=== PATIENT | male | born 1960 | race Caucasian/White ===

== ENCOUNTER → 2018-09-04 | Outpatient (CLI) | payer BC ==
[2018-09-04 13:11] LABS: HCT 45.4 % (39.0-53.0); HGB 14.7 gm/dL (13.0-17.5); MCH 32.9 pg (25.0-35.0); MCHC 32.3 g/dL (31.0-37.0); MCV 102.1 fL (80.0-100.0); Mean Platelet Volume 6.6; Platelet Count 225 k/uL (150-450); RBC 4.45 m/uL (4.30-5.90); RDW 12.3 % (11.5-15.5); WBC 6.4 k/uL (3.8-10.6)
== END | disposition home or self-care (01) ==
LOC: LABPAT 11:58
PROVIDERS: ATTEND Internal Medicine Cardiovascular Disease
DX: Z01.812 Encounter for preprocedural laboratory examination (principal)
CPT/HCPCS: 36415; 85027

== ENCOUNTER 2018-09-10 06:56 | Day surgery (SDC) | payer BC ==
[2018-09-08 09:44] VITALS: BMI 27.3
[~2018-09-10 06:56] MED LIST: SODIUM CHLORIDE 0.9% 1,000 ML IV SCH
[2018-09-10 07:39] LABS: INR 3.6 (<1.2); Prothrombin Time 32.1 sec (9.0-12.0)
[2018-09-10] MEDS ORDERED: PROPOFOL 10 MG/ML 20 ML VIAL IV ONE (08:00)
[2018-09-10] MEDS ORDERED: IV FLUID CONTINUATION 1,000 ML IV ONE (08:02)
[2018-09-10] MEDS ORDERED: LORazepam 0.5 MG TAB PO PRN (08:28)
[2018-09-10] MEDS ORDERED: SODIUM CHLORIDE 0.9% 1,000 ML IV SCH (08:30)
--- NOTE | 2018-09-10 08:33 | P.PCN ---
Date of Procedure: 09/10/18 Preoperative Diagnosis: Persistent atrial fibrillation Postoperative Diagnosis: Conversion to sinus rhythm Procedure(s) Performed: Cardioversion Description of Procedure: This 58-year-old gentleman with history of mitral repair for ruptured chordae tendineae and paroxysmal atrial fibrillation, was found to have persistent atrial fibrillation. Patient was complaining of some fatigue and palpitations. He is advised to have a cardioversion. Procedure: Patient was brought to the lab in a fasting state. He was given IV sedation by department of anesthesia. Since March shock of 300 J was applied with anterior posterior paddles. Patient converted to sinus rhythm. No immediate complications noted. Impression: Successful cardioversion. No immediate complication. Patient is being admitted to observation unit and will be treated with flecainide 100 mg by mouth twice a day. If patient is stable, patient will be discharged in 24 hours.
[2018-09-10] MEDS ORDERED: SODIUM CHLORIDE 0.9% 1,000 ML IV ONE (08:54)
[2018-09-10] MEDS ORDERED: NON-FORMULARY DRUG (Glucosam/Chon-Msm1/C/Mang/Bosw [Glucosamine-Chondroitin Tablet] 1 TAB) PO SCH (09:00)
[2018-09-10] MEDS ORDERED: NON-FORMULARY DRUG (Omega-3 Fatty Acids/Fish Oil [Fish Oil 1,000 Mg Softgel] 1 CAP) PO SCH (09:00)
[2018-09-10] MEDS ORDERED: LISINOPRIL-HCTZ 10-12.5 MG 1 EACH TAB PO STA (11:50)
[2018-09-10] MEDS ORDERED: FLECAINIDE 50 MG TAB PO STA (11:50)
[2018-09-10] MEDS ORDERED: MULTIVITAMINS, THERA 1 EACH TAB PO STA (11:51)
[2018-09-10] MEDS ORDERED: METOPROLOL TARTRATE 25 MG TAB PO STA (11:51)
[2018-09-10] MEDS: LACTATED RINGERS 1,000 ML IV SCH ×2 (18:15→19:34)
[2018-09-10] MEDS: FLECAINIDE 50 MG TAB PO SCH (19:46)
[2018-09-10] MEDS: METOPROLOL TARTRATE 25 MG TAB PO SCH (19:57)
[2018-09-11 04:03] VITALS: PULSE 61
[2018-09-11 07:36] VITALS: BP 151/88; RESP 18; TEMP 98.3
[2018-09-11 07:47] LABS: INR 1.6 (<1.2); Prothrombin Time 15.1 sec (9.0-12.0)
[2018-09-11] MEDS: METOPROLOL TARTRATE 25 MG TAB PO SCH (07:49)
[2018-09-11] MEDS: FLECAINIDE 50 MG TAB PO SCH (07:49)
--- NOTE | 2018-09-11 08:46 | P.DS ---
Providers Date of admission: 09/10/2018 Attending physician: Misa Garcia Primary care physician: Hemanth Freeman - Discharge Diagnosis(es) (1) Persistent atrial fibrillation Current Visit: Yes Status: Acute (2) Cardiomyopathy Current Visit: No Status: Acute (3) Congestive heart failure Current Visit: No Status: Acute (4) Hypertension Current Visit: No Status: Acute (5) Mitral regurgitation Current Visit: No Status: Acute Hospital Course: This is a 58-year-old gentleman with history of mitral valve repair for ruptured chordae tendineae and history of paroxysmal atrial fibrillation, who is admitted now with new onset persistent atrial fibrillation. A she had elective cardioversion and maintaining sinus rhythm. Patient has been stable overnight. He was started on flecainide 100 mg by mouth twice a day. Patient is tolerating the medication well. EKG this morning showed sinus rhythm with normal FL and QRS duration with normal QT interval. Patient is being discharged home to continue home medications plus flecainide 100 mg by mouth twice a day. Patient is adequately anticoagulated. Follow-up in the office in one week. Plan - Discharge Summary Discharge Rx Participant: Yes New Discharge Prescriptions: New Flecainide [Tambocor] 100 mg PO Q12HR #60 tablet No Action Multivitamins, Thera [Multivitamin (formulary)] 1 tab PO DAILY Potassium 99 mg PO DAILY Douglas-3 Fatty Acids/Fish Oil [Fish Oil 1,000 mg Softgel] 1 cap PO DAILY Glucosam/Trav-Msm1/C/Anthony/Bosw [Glucosamine-Chondroitin Tablet] 1 tab PO DAILY Calcium/Magnesium/Zinc [Viqxccr-Jubudljhv-Stqq Tablet] 1 tab PO DAILY Lisinopril-Hctz 10-12.5 mg [Zestoretic 10-12.5] 1 each PO DAILY #30 tab LORazepam [Ativan] 0.5 mg PO Q8H PRN #20 tab PRN Reason: Anxiety Warfarin [Coumadin] 5 mg PO DAILY #20 tab Metoprolol Tartrate [Lopressor] 75 mg PO DAILY Discharge Medication List Calcium/Magnesium/Zinc [Iknuinq-Okjzuebyv-Wnwv Tablet] 1 tab PO DAILY 11/26/15 [ History] Glucosam/Trav-Msm1/C/Anthony/Bosw [Glucosamine-Chondroitin Tablet] 1 tab PO DAILY 11/26/15 [History] Multivitamins, Thera [Multivitamin (formulary)] 1 tab PO DAILY 11/26/15 [History ] Douglas-3 Fatty Acids/Fish Oil [Fish Oil 1,000 mg Softgel] 1 cap PO DAILY [History] Potassium 99 mg PO DAILY 11/26/15 [History] LORazepam [Ativan] 0.5 mg PO Q8H PRN #20 tab 11/30/15 [Rx] Lisinopril-Hctz 10-12.5 mg [Zestoretic 10-12.5] 1 each PO DAILY #30 tab [Rx] Warfarin [Coumadin] 5 mg PO DAILY #20 tab 11/30/15 [Rx] Metoprolol Tartrate [Lopressor] 75 mg PO DAILY 09/08/18 [History] Flecainide [Tambocor] 100 mg PO Q12HR #60 tablet 09/11/18 [Rx] Follow up Appointment(s)/Referral(s): Misa Garcia MD [STAFF PHYSICIAN] - 1 Week Discharge Disposition: HOME SELF-CARE
[2018-09-11] MEDS ORDERED: METOPROLOL TARTRATE 25 MG TAB PO SCH (09:00)
[2018-09-11] MEDS ORDERED: POTASSIUM CHLORIDE ER 10 MEQ TAB.ER.PRT PO SCH (09:00)
[2018-09-11] MEDS ORDERED: NON-FORMULARY DRUG (Calcium/Magnesium/Zinc [Calcium-Magnesium-Zinc Tablet] 1 TAB) PO SCH (09:00)
[2018-09-11] MEDS ORDERED: LISINOPRIL-HCTZ 10-12.5 MG 1 EACH TAB PO SCH (09:00)
[2018-09-11] MEDS ORDERED: MULTIVITAMINS, THERA 1 EACH TAB PO SCH (12:00)
[2018-09-11] MEDS ORDERED: WARFARIN 5 MG TAB PO SCH (18:00)
== END 2018-09-11 11:24 | disposition home or self-care (01) ==
LOC: CATHCVL 06:56 → 1SOBS 08:24 → CATHCVL 09-11 11:24
PROVIDERS: ATTEND Internal Medicine Cardiovascular Disease
DX: I48.1 Persistent atrial fibrillation (principal); I11.0 Hypertensive heart disease with heart failure; I50.31 Acute diastolic (congestive) heart failure; I42.9 Cardiomyopathy, unspecified; I34.0 Nonrheumatic mitral (valve) insufficiency; G47.33 Obstructive sleep apnea (adult) (pediatric); Z79.01 Long term (current) use of anticoagulants; Z72.0 Tobacco use; Z79.899 Other long term (current) drug therapy; Z79.82 Long term (current) use of aspirin; Z98.890 Other specified postprocedural states
CPT/HCPCS: 92960; 85610 ×2; J2704

== ENCOUNTER 2019-02-17 10:58 | Day surgery (SDC) | payer BC ==
[2019-02-17] MEDS ORDERED: ALPRAZolam 0.5 MG TAB ONE (11:49)
[2019-02-17] MEDS ORDERED: ALPRAZolam 0.5 MG TAB PO ONE (11:52)
[2019-02-17] MEDS ORDERED: SODIUM CHLORIDE 0.9% 1,000 ML IV ONE ×2 (11:53→18:59)
[2019-02-17 11:54] LABS: INR 2.6 (<1.2); Prothrombin Time 25.1 sec (9.0-12.0)
[2019-02-17] MEDS ORDERED: SUCCINYLCHOLINE CHLORIDE 100 MG/5 ML SYR IV ONE (13:33)
[2019-02-17] MEDS ORDERED: ROCURONIUM BROMIDE 10 MG/ML 10 ML VIAL IV ONE (13:33)
[2019-02-17] MEDS ORDERED: PROPOFOL 10 MG/ML 20 ML VIAL IV ONE (13:33)
[2019-02-17] MEDS ORDERED: MORPHINE SULFATE 10 MG/ML SYRINGE ONE (13:33)
[2019-02-17] MEDS ORDERED: PHENYLEPHRINE-0.9% NACL SYG 1 MG/10 ML SYRINGE ONE (13:33)
[2019-02-17] MEDS ORDERED: PROTAMINE SULFATE 10 MG/ML 5 ML VIAL IV ONE (13:33)
[2019-02-17] MEDS ORDERED: HEPARIN SODIUM,PORCINE 5,000 UNIT/ML 1 ML VIAL ONE (13:33)
[2019-02-17] MEDS ORDERED: MIDAZOLAM 2 MG/2 ML VIAL ONE (13:33)
[2019-02-17] MEDS ORDERED: fentaNYL (PF) 50 MCG/ML 2 ML AMP ONE (13:33)
[2019-02-17] MEDS ORDERED: HEPARIN SOD,PORK IN 0.45% NACL 25,000 UNIT in 0.45% NACL 1 250ML.BAG IV ONE (14:00)
[2019-02-17] MEDS ORDERED: HEPARIN SODIUM (1,000 UNIT/ML) 1,000 UNIT in SODIUM CHLORIDE 0.9% 1,000 ML IRRIGATION ONE (14:00)
[2019-02-17] MEDS ORDERED: HEPARIN SODIUM 1,000 UN/ML (10ML VL) ONE ×2 (14:07→16:26)
[2019-02-17] MEDS ORDERED: LIDOCAINE 1% INJ 10MG/ML (20 ML MDV) ONE (14:08)
[2019-02-17] MEDS ORDERED: ceFAZolin IN SWFI 2 GM/20 ML SYRINGE IVP ONE (14:15)
[2019-02-17] MEDS ORDERED: LIDOCAINE 1% INJ 10MG/ML (20 ML MDV) SQ ONE (14:16)
[2019-02-17] MEDS ORDERED: LACTATED RINGERS 1,000 ML IV ONE (15:10)
[2019-02-17] MEDS ORDERED: WARFARIN 2.5 MG TAB PO SCH (18:00)
[2019-02-17] MEDS ORDERED: ACETAMINOPHEN IV (For NPO) 1,000 MG in EMPTY BAG 1 BAG IVPB ONE (18:01)
[2019-02-17] MEDS ORDERED: ACETAMINOPHEN TAB 325 MG TAB PO PRN (18:01)
[2019-02-17] MEDS: LACTATED RINGERS 1,000 ML IV SCH ×2 (18:12→22:16)
[2019-02-17] MEDS: SODIUM CHLORIDE 0.9% 1,000 ML IV SCH ×2 (18:12→22:05)
--- NOTE | 2019-02-17 18:32 | P.PCN ---
Preoperative Diagnosis: Diagnosis Atrial fibrillation, symptomatic, refractory to therapy, intolerant of flecainide Status post surgical maze procedure at the time of mitral valve surgery/cardiac valve repair Result Successful pulmonary vein isolation of all veins using cryo-ablation Complete entrance block in all 4 veins confirmed No evidence for phrenic nerve injury Linear ablation along left atrial roof targeting rapid atrial tachycardia with fractionation Linear ablation along the anterior LA wall outside the right atrial antrum, targeting fractionated electrograms Esophageal deflection YES Electrical cardioversion with a synchronized shock across the chest YES Procedure details Patient was brought to the EP lab in a fasting state. Written informed consent was obtained prior to the procedure. Procedure performed under general anesthesia After initial muscle relaxant use, muscle relaxants were not given thereafter in order to assess phrenic nerve during procedure. Patient prepped and draped as per protocol Full cryo-set up with standard preparation of the cryoablation tools done. Femoral Venous access obtained on the right and left groins Venous and arterial Sheaths placed. Diagnostic catheters for the high right atrium, phrenic nerve stimulation and pacing, His bundle, RV and coronary sinus placed Intracardiac echo catheter placed. Long sheath placed in the right atrium Left and right transseptal catheterization performed under intracardiac echo guidance. Intravenous heparin with aCT above 300 Later, catheter positioning and balloon positioning in the left atrium, under intracardiac echo guidance Diagnostic EP study with Coronary sinus pacing and recording Baseline measurements AH interval 69 ms, HV interval 39 ms AV node Wenckebach block 390 ms VA Wenckebach block for 90 ms Atrial pacing performed from the high right atrium and the coronary sinus RV pacing Transseptal catheterization performed RA pressure 23/9 LA pressure 33/11 Transseptal catheterization performed with standard sheath. The cryoablation sheath was then placed with an over the wire exchange without any acute complications. All 4 pulmonary veins were isolated in the following sequence: Left superior followed by left inferior followed by right superior followed by right inferior The cryo-ablation balloon was placed at the os of each vein 1.5 mL of IV dye was injected to confirm an occluded vein Goal during cryoablation was to achieve complete occlusion of the pulmonary vein, achieve -30 degrees C at 30 seconds and achieve -40 degrees C at 60 seconds and a time to effect of less than 60-90 seconds, . If not the balloon was repositioned to obtain this result After completion of Cryoblation with durations from 180-240 seconds, entrance block was confirmed with the Attain circular catheter in a roving fashion around the antrum of the pulmonary veins Phrenic nerve pacing was performed from the SVC, right innominate vein area and diaphragm voltage was monitored. Diaphragmatic contractions were also monitored manually for strength of contraction. Parameter goals for each cryo freeze Complete occlusion of the appropriate vein -30 degrees C by 30 seconds -40 degrees C by 60 seconds Minimum between minus 40-55 degrees C Thaw time greater than 10 seconds Balloon visualized by intracardiac echo The esophagus was intubated. Esophageal Temperature monitoring with a CIRCA catheter formed. Esophageal deflection for hypothermia of the esophagus below 30 degrees C Left superior pulmonary vein Complete isolation, entrance block Left inferior pulmonary vein Complete isolation, entrance block Right superior pulmonary vein, during phrenic nerve pacing Was already completely isolated. Patient has a prior maze procedure performed Right inferior pulmonary vein, during phrenic nerve pacing Complete isolation, entrance block At the end of the procedure the Achieve catheter was once again used to check for entrance block Phrenic nerve stimulation was performed to confirm diaphragmatic stimulation the end of the procedure Cine fluoroscopy was performed at the very end of the procedure to confirm movement of both diaphragms with inspiration and expiration Cryoablation of the pulmonary veins resulted in slight organization a slight prolongation of the rapid atrial tachycardia about 160 ms The cryo sheath and the balloon was removed. An irrigated tip RF ablation catheter was placed 3-D mapping of the right atrium was performed Intracardiac echocardiography was performed Veins are completely isolated There is a very rapid atrial tachycardia with a short cycle length with fractionation noted in the left atrial roof as well as along the anterior wall outside the right superior pulmonary vein antrum Targeting the fractionated electrograms, ablation outside the right pulmonary venous antrum was performed with slight further organization of the tachycardia Left atrial roof line was made with further organization of the cardia RF ablation was applied in the mitral isthmus with some more organization. However the atrial fibrillation/very rapid short cycle length atrial tachycardia continued The right atrium was mapped and was found to be in atrial fibrillation No right atrial ablation was performed At the end of the procedure the patient was extubated Heparin was reversed Venous sheaths were removed and hemostasis assured Procedures performed (PVI - CRYO Ablation) Invasive hemodynamic monitoring while general anesthesia, right femoral arterial line for monitoring and sampling Diagnostic EP study CS pacing and recording Left and right transseptal catheterization Catheter the mapping of the tachycardia (NOT 3D mapping) Intracardiac echocardiography Pulmonary vein isolation with transseptal and comprehensive EPS, [id number] Left atrial roof line, +[id number] Linear ablation along the anterior wall of the LA, +[id number] Electrical cardioversion with a synchronized shock across the chest [id number]
[2019-02-17] MEDS ORDERED: IOPAMIDOL-370 100ML BTL INJ ONE (18:34)
--- NOTE | 2019-02-17 18:34 | P.DS ---
Providers Attending physician: Venu Oh Primary care physician: Hemanth Freeman [facility] Course: Impression Symptomatic persistent atrial fibrillation, drug refractory, refractory to surgical Maze procedure performed when his mitral valve was repaired Intracardiac echo showed a left atrial appendage stump Complete recovery was noted in the left superior, left inferior in the right middle and right inferior pulmonary veins Pulmonary vein isolation was performed, using cryoablation line RF ablation was performed targeting fractionated electrograms along the anterior wall of the left atrium much outside the right superior pulmonary venous antra Linear ablation along the left atrial roof Only slight organization of the very rapid atrial tachycardia with a slight prolongation cycle length Right atrium was mapped and was in atrial fibrillation Impression underwent electrical cardioversion Plan Continue anticoagulation Continue metoprolol If he has recurrence of atrial fibrillation I would use dofetilide. I did discuss this with his and daughter and explained that this has to be done as an inpatient and he needs to be monitored for 5 days on telemetry while watching his QT interval Plan - Discharge Summary Discharge Rx Participant: No New Discharge Prescriptions: No Action Multivitamins, Thera [Multivitamin (formulary)] 1 tab PO DAILY Potassium 99 mg PO DAILY Calcium/Magnesium/Zinc [Zttkenc-Vtgiodlps-Rnlc Tablet] 1 tab PO DAILY Atorvastatin [Lipitor] 20 mg PO HS Krill/China-3/Dha/Epa/Lipids [Krill Oil 350 mg Softgel] 1 each PO DAILY Lisinopril-Hctz 10-12.5 mg [Zestoretic 10-12.5] 2 each PO DAILY LORazepam [Ativan] 1 mg PO HS PRN PRN Reason: sleep Metoprolol Succinate (ER) [Toprol Xl] 75 mg PO DAILY Turmeric Root Extract [Turmeric] 500 mg PO DAILY Warfarin [Coumadin] 3.75 mg PO MOFR Warfarin [Coumadin] 2.5 mg PO SUTUWETHSA Discharge Medication List Calcium/Magnesium/Zinc [Htntnnn-Hrewgfhyz-Exkv Tablet] 1 tab PO DAILY 11/26/15 [History] Multivitamins, Thera [Multivitamin (formulary)] 1 tab PO DAILY 11/26/15 [History] Potassium 99 mg PO DAILY 11/26/15 [History] Atorvastatin [Lipitor] 20 mg PO HS 02/16/19 [History] Krill/China-3/Dha/Epa/Lipids [Krill Oil 350 mg Softgel] 1 each PO DAILY 02/16/19 [History] LORazepam [Ativan] 1 mg PO HS PRN 02/16/19 [History] Lisinopril-Hctz 10-12.5 mg [Zestoretic 10-12.5] 2 each PO DAILY 02/16/19 [History] Metoprolol Succinate (ER) [Toprol Xl] 75 mg PO DAILY 02/16/19 [History] Turmeric Root Extract [Turmeric] 500 mg PO DAILY 02/16/19 [History] Warfarin [Coumadin] 2.5 mg PO SUTUWETHSA 02/16/19 [History] Warfarin [Coumadin] 3.75 mg PO MOFR 02/16/19 [History]
[2019-02-17 20:19] VITALS: BMI 28.3
[2019-02-17 21:00] VITALS: RESP 18
[2019-02-17] MEDS ORDERED: ATORVASTATIN 20 MG TAB PO SCH (21:00)
[2019-02-17] MEDS: HYDROcodone/APAP 5-325MG 1 EACH TAB PO PRN (22:04)
[2019-02-18] MEDS: HYDROcodone/APAP 5-325MG 1 EACH TAB PO PRN ×2 (01:32→08:47)
[2019-02-18 08:21] LABS: INR 2.6 (<1.2); Prothrombin Time 25.3 sec (9.0-12.0)
[2019-02-18] MEDS ORDERED: METOPROLOL SUCCINATE (ER) 50 MG TAB.ER.24H PO SCH (09:00)
[2019-02-18] MEDS ORDERED: LISINOPRIL-HCTZ 20-25 MG 1 EACH TAB PO SCH (09:00)
[2019-02-18 11:26] VITALS: BP 122/80; PULSE 65; TEMP 98.1
[2019-02-20] MEDS ORDERED: WARFARIN 2.5 MG TAB PO SCH (18:00)
== END 2019-02-18 17:46 | disposition home or self-care (01) ==
LOC: CATHEP 10:58 → 1SOBS 17:56 → CATHEP 02-18 17:46
PROVIDERS: ATTEND Internal Medicine Clinical Cardiac Electrophysiology
DX: I48.1 Persistent atrial fibrillation (principal); I11.0 Hypertensive heart disease with heart failure; I50.32 Chronic diastolic (congestive) heart failure; Z79.01 Long term (current) use of anticoagulants; Z79.899 Other long term (current) drug therapy
CPT/HCPCS: 85347; 93662; 93609; 93656; 92960; 85610 ×2; C1769 ×5; C1894 ×2; C1730 ×3; C1759; C1893; C1733; C1766; C1732; J2250; J2720; J1644 ×3; J2270; J2001; J3010; J0131; J2370; J0330; J2704; J0690; Q9967

== ENCOUNTER 2023-12-13 05:43 | Day surgery (SDC) | payer BC ==
[~2023-12-13 05:43] MED LIST changes: +HEPARIN SODIUM,PORCINE 5,000 UNIT/ML 1 ML VIAL SQ PRN; -SODIUM CHLORIDE 0.9% 1,000 ML IV SCH
[2023-12-13] MEDS ORDERED: SCOPOLAMINE 1 MG/72 HR PATCH TRANSDERM ONE (05:53)
[2023-12-13] MEDS: LACTATED RINGERS 1,000 ML IV SCH (06:25)
[2023-12-13] MEDS: DEXAMETHASONE SOD PHOSPHATE 4 MG/ML 1 ML VIAL IV ONE (06:51)
[2023-12-13] MEDS: ONDANSETRON 4 MG/2 ML VIAL IVP ONE (06:51)
[2023-12-13] MEDS: ACETAMINOPHEN TAB 500 MG TAB PO PRN (06:53)
[2023-12-13 07:00] LABS: Basophils % (A) 0 %; Eosinophils # (A) 0.1 k/uL (0-0.7); Eosinophils % (A) 1 %; HCT 36.3 % (39.0-53.0); HGB 12.4 gm/dL (13.0-17.5); Lymphocytes # (A) 1.2 k/uL (1.0-4.8); Lymphocytes % (A) 14 %; MCH 32.6 pg (25.0-35.0); MCHC 34.2 g/dL (31.0-37.0); MCV 95.3 fL (80.0-100.0); Mean Platelet Volume 7.1; Monocytes # (A) 0.6 k/uL (0-1.0); Monocytes % (A) 7 %; Neutrophils # (A) 6.1 k/uL (1.3-7.7); Neutrophils % (A) 75 %; Platelet Count 222 k/uL (150-450); RBC 3.81 m/uL (4.30-5.90); RDW 11.6 % (11.5-15.5); WBC 8.2 k/uL (3.8-10.6)
[2023-12-13 07:09] LABS: INR 1.1 (<1.2); Prothrombin Time 11.5 sec (10.0-12.5)
[2023-12-13 07:12] LABS: African American GFR (CKD) >90 (>60 ml/min/1.73 sqM); Anion Gap 7 mmol/L; Blood Urea Nitrogen 19 mg/dL (9-20); Calcium 9.6 mg/dL (8.4-10.2); Carbon Dioxide 27 mmol/L (22-30); Chloride 103 mmol/L (98-107); Glucose 97 mg/dL (74-99); Non-African American GFR(CKD) >90 (>60 ml/min/1.73 sqM); Potassium 4.5 mmol/L (3.5-5.1); Sodium 137 mmol/L (137-145)
[2023-12-13] MEDS: fentaNYL (PF) 50 MCG/1 ML VIAL IVP ONE (07:12)
[2023-12-13] MEDS: MIDAZOLAM 2 MG/2 ML VIAL IV PRN (07:12)
[2023-12-13] MEDS ORDERED: LIDOCAINE 1% INJ 10MG/ML (20 ML MDV) ONE (07:30)
[2023-12-13] MEDS ORDERED: fentaNYL (PF) 50 MCG/ML 2 ML AMP ONE (07:30)
[2023-12-13] MEDS ORDERED: PHENYLEPHRINE-0.9% NACL SYG 1,000 MCG/10 ML SYRINGE ONE (07:30)
[2023-12-13] MEDS ORDERED: DEXAMETHASONE SOD PHOSPHATE 4 MG/ML 1 ML VIAL ONE (07:30)
[2023-12-13] MEDS ORDERED: HYDROmorphone (PF) 1 MG/ML ONE (07:30)
[2023-12-13] MEDS ORDERED: ROCURONIUM 10 MG/ML (5 ML VIAL) IV ONE (07:30)
[2023-12-13] MEDS ORDERED: SUCCINYLCHOLINE CHLORIDE 200 MG/10 ML VIAL IV ONE (07:30)
[2023-12-13] MEDS ORDERED: ROPIVACAINE 5 MG/ML 30 ML VIAL ONE (07:30)
[2023-12-13] MEDS ORDERED: SODIUM CHLORIDE 0.9% (PF) 10 ML VIAL ONE (07:30)
[2023-12-13] MEDS ORDERED: GLYCOPYRROLATE 0.2 MG/ML 2 ML VIAL ONE (07:30)
[2023-12-13] MEDS ORDERED: NEOSTIGMINE 1 MG/ML 10 ML VIAL ONE (07:30)
[2023-12-13] MEDS ORDERED: PROPOFOL 10 MG/ML 20 ML VIAL IV ONE (07:30)
--- NOTE | 2023-12-13 07:34 | P.GSHP ---
History of Present Illness H&P Date: 12/13/23 Chief Complaint: Umbilical hernia, sebaceous cyst 63-year-old male here for repair umbilical hernia and excision sebaceous cyst. Hernia enlarging in size over time. Mild soreness. Small lump right posterior neck also enlarging and painful at times. - Review of Systems Comment: The patient denies any acute changes in vision or hearing, no dysphagia or odynophagia, no chest pain or shortness of breath, no dysuria or hematuria, no headache, no runny nose, no rectal bleeding or melena, no unexplained weight loss Past Medical History Past Medical History: Cancer, Hyperlipidemia, Hypertension, Osteoarthritis (OA) Additional Past Medical History / Comment(s): See Dr Oh H&P, hx skin cancer- removed. History of Any Multi-Drug Resistant Organisms: None Reported Past Surgical History: Ablation, Heart Catheterization Additional Past Surgical History / Comment(s): skin cancer removed from nose, mitral valve repair, cardioversion, Past Anesthesia/Blood Transfusion Reactions: No Reported Reaction Additional Past Anesthesia/Blood Transfusion Reaction / Comment(s): . Smoking Status: Former smoker - Past Family History Brother(s) Family Medical History: Cancer Medications and Allergies Home Medications Medication Instructions Recorded Confirmed Type Calcium/Magnesium/Zinc 1 tab PO DAILY 11/26/15 12/09/23 History [Rlesytu-Syjkpswnu-Nsck Tablet] Multivitamins, Thera [Multivitamin 1 tab PO DAILY 11/26/15 12/09/23 History (formulary)] Potassium 99 mg PO DAILY 11/26/15 12/09/23 History Atorvastatin [Lipitor] 20 mg PO HS 02/16/19 12/13/23 History Lisinopril-Hctz 10-12.5 mg 2 each PO DAILY 02/16/19 12/13/23 History [Zestoretic 10-12.5] Metoprolol Succinate (ER) [Toprol 75 mg PO DAILY 02/16/19 12/13/23 History XL] Turmeric Root Extract [Turmeric] 500 mg PO DAILY 02/16/19 12/09/23 History Warfarin [Coumadin] 2.5 mg PO SUTUTHSA 02/16/19 12/09/23 History Warfarin [Coumadin] 3.75 mg PO MOWEFR 02/16/19 12/09/23 History Allergies Allergy/AdvReac Type Severity Reaction Status Date / Time No Known Allergies Allergy Verified 12/13/23 06:33 Surgical - Exam Vital Signs Temp Pulse Resp BP Pulse Ox 97.5 F L 90 20 131/69 98 12/13/23 06:36 12/13/23 06:36 12/13/23 06:36 12/13/23 06:36 12/13/23 06:36 Physical exam: General: Well-developed, well-nourished HEENT: Normocephalic, sclerae nonicteric, 1.5 to 2 cm sebaceous cyst right posterior neck Abdomen: Nontender, nondistended, incarcerated umbilical hernia Extremities: No edema Neuro: Alert and oriented Results - Labs 12/13/23 06:46 12/13/23 06:46 Abnormal Lab Results - Last 24 Hours (Table) 12/13/23 Range/Units 06:46 RBC 3.81 L (4.30-5.90) m/uL Hgb 12.4 L (13.0-17.5) gm/dL Hct 36.3 L (39.0-53.0) % Diabetes panel 12/13/23 Range/Units 06:46 Sodium 137 (137-145) mmol/L Potassium 4.5 (3.5-5.1) mmol/L Chloride 103 (98-107) mmol/L Carbon Dioxide 27 (22-30) mmol/L BUN 19 (9-20) mg/dL Creatinine 0.76 (0.66-1.25) mg/dL Glucose 97 (74-99) mg/dL Calcium 9.6 (8.4-10.2) mg/dL Calcium panel 12/13/23 Range/Units 06:46 Calcium 9.6 (8.4-10.2) mg/dL Pituitary panel 12/13/23 Range/Units 06:46 Sodium 137 (137-145) mmol/L Potassium 4.5 (3.5-5.1) mmol/L Chloride 103 (98-107) mmol/L Carbon Dioxide 27 (22-30) mmol/L BUN 19 (9-20) mg/dL Creatinine 0.76 (0.66-1.25) mg/dL Glucose 97 (74-99) mg/dL Calcium 9.6 (8.4-10.2) mg/dL Adrenal panel 12/13/23 Range/Units 06:46 Sodium 137 (137-145) mmol/L Potassium 4.5 (3.5-5.1) mmol/L Chloride 103 (98-107) mmol/L Carbon Dioxide 27 (22-30) mmol/L BUN 19 (9-20) mg/dL Creatinine 0.76 (0.66-1.25) mg/dL Glucose 97 (74-99) mg/dL Calcium 9.6 (8.4-10.2) mg/dL Assessment and Plan (1) Umbilical hernia Narrative/Plan: 63-year-old male with umbilical hernia and sebaceous cyst. Will proceed with open repair umbilical hernia with mesh, excision of sebaceous cyst right posterior neck. Risks of bleeding, infection, recurrence, bladder and bowel injury, numbness, nerve injury, conversion to an open procedure were discussed with the patient. The patient understands and wishes to proceed. Current Visit: Yes Status: Acute Code(s): K42.9 - UMBILICAL HERNIA WITHOUT OBSTRUCTION OR GANGRENE SNOMED Code(s): 700429760
[2023-12-13] MEDS: BUPIVACAINE (PF) 0.25% 30 ML VIAL SQ ONE ×2 (08:00→08:26)
--- NOTE | 2023-12-13 08:09 | P.ANPRN ---
Procedure Note - Anesthesia - Nerve Block Performed Bilateral Erector Spinae Single Time Out Performed: Yes Date of Procedure: 12/13/23 Procedure Start Time: 07:12 Procedure Stop Time: 07:20 Location of Patient: PreOp Indication: Acute Post-Operative Pain, Requested by Surgeon Sedation Type: Sedate with meaningful contact maintained Preparation: Sterile Prep Position: Prone Needle Types: Pajunk Needle Gauge: 21 Ultrasound used to visualize needle placement: Yes Ultrasound used to observe medication spread: Yes Injectate: 0.5% Ropivacaine (see comment for volume) (20 ml + 10 ml NS + 4 mg Dexamethasone per side) Blood Aspirated: No Pain Paresthesia on Injection Noted: No Resistance on Injection: Normal Image Stored and Saved: Yes Events: Uneventful and Well Tolerated
[2023-12-13] MEDS: LACTATED RINGERS 1,000 ML IV ONE (08:58)
[2023-12-13 09:32] VITALS: TEMP 97.6
--- NOTE | 2023-12-13 09:36 | P.OP ---
Date of Procedure: 12/13/23 Procedure(s) Performed: PREOPERATIVE DIAGNOSIS: Incarcerated umbilical hernia, right neck sebaceous cyst POSTOPERATIVE DIAGNOSIS: Same PROCEDURE: Open repair incarcerated umbilical hernia with mesh, excision right neck sebaceous cyst SURGEON: Dr. Velazco ANESTHESIA: General OPERATIVE PROCEDURE DETAILS: The patient was placed in the operating table in the supine position. A right sided periumbilical incision was made using the scalpel. The subcutaneous tissues were dissected bluntly and with cautery. The hernia sac was identified. The umbilical attachments to the fascia were divided using electrocautery. The hernia sac was reduced back into the preperitoneal space. The defect in the fascia measured 2 x 1.2 cm. The fat overlying the fascia was dissected. No additional defects were seen. The preperitoneal space was then dissected using blunt dissection and electrocautery. The 6.4 cm ventral ex mesh was placed beneath the fascia and sutured in place using trans- fascial 0 Ethibond sutures. The defect was closed using interrupted vest over pants 0 Ethibond mattress sutures. The subcutaneous tissues were reapproximated using inverted 2-0 & 3-0 Vicryl sutures. The umbilicus was tacked back down to the fascia using a 2-0 Vicryl suture. The skin was closed using 4-0 Monocryl sutures. Skin glue and sterile dressings were then applied. Next the right neck sebaceous cyst was addressed. This measured 1.5 cm. An elliptical incision was made overlying the cystic lesion encompassing the punctum present. The skin and mass were excised. This appeared consistent with a necrotic sebaceous cyst. Bleeding was controlled using spot cautery. Incision site closed with interrupted 5-0 nylon sutures. HERNIA CHARACTERISTICS: Length: 2 cm Width: 1.5 cm Type: Incarcerated umbilical TYPE OF MESH USED: 6.4 cm Ventralex LOCATION OF MESH: Sublay FIXATION: 0 Ethibond PREOPERATIVE DISCUSSION ON SMOKING CESSASTION: Yes PREOPERATIVE DISCUSSION ON MORBID OBESITY: Yes PREOPERATIVE DISCUSSION ON APPROPRIATE USE OF NARCOTIC USE: Yes PREOPERATIVE EDUCATION: Multi Modal, Smoking Cessation and Weight Loss with BMI over 35. DISPOSITION: Stable to recovery room
[2023-12-13] MEDS: HYDROmorphone 0.5 MG/0.5 ML SYRINGE IVP PRN (09:45)
[2023-12-13 11:05] VITALS: RESP 20
[2023-12-13 11:36] VITALS: BP 132/74; PULSE 80
[2023-12-13] MEDS ORDERED: IBUPROFEN 600 MG TAB PO SCH (12:15)
[2023-12-13] MEDS ORDERED: ACETAMINOPHEN TAB 325 MG TAB PO SCH (15:15)
== END 2023-12-13 12:03 | disposition home or self-care (01) ==
LOC: OR 05:43
PROVIDERS: ATTEND Surgery
DX: K42.0 Umbilical hernia with obstruction, without gangrene (principal); L72.3 Sebaceous cyst; G89.18 Other acute postprocedural pain; I10 Essential (primary) hypertension; E78.5 Hyperlipidemia, unspecified; M19.90 Unspecified osteoarthritis, unspecified site; Z87.891 Personal history of nicotine dependence; Z79.01 Long term (current) use of anticoagulants; Z79.899 Other long term (current) drug therapy; Z86.74 Personal history of sudden cardiac arrest; Z85.828 Personal history of other malignant neoplasm of skin
CPT/HCPCS: 64999; 80048; 85025; 85610; 49592; C1781; J2250; J0330; J1100; J2710; J0690; J2405; J2001; J3010 ×2; J1170 ×2; J2795; J2704; J2371; J0665; 88305

== ENCOUNTER → 2025-03-19 | Outpatient (CLI) | payer BC ==
[2025-03-19 18:21] LABS: Basophils # (A) 0.03 X 10*3/uL (0.00-0.10); Basophils % (A) 0.6 %; Eosinophils # (A) 0.11 X 10*3/uL (0.04-0.35); Eosinophils % (A) 2.3 %; HGB 12.2 g/dL (13.0-17.0); Lymphocytes # (A) 1.05 X 10*3/uL (0.90-5.00); Lymphocytes % (A) 21.7 %; MCH 31.2 pg (27.0-32.0); MCV 94.6 FL (80.0-97.0); Mean Platelet Volume 9.5 FL (9.5-12.2); Monocytes % (A) 10.3 %; NRBC Per 100 WBC 0 X 10*3/uL (0.00-0.01); Neutrophils # (A) 3.14 X 10*3/uL (1.80-7.70); Neutrophils % (A) 64.9 %; Platelet Count 236 X 10*3/uL (140-440); RBC 3.91 X 10*6/uL (4.40-5.60); RDW 11.9 % (11.5-14.5); WBC 4.84 X 10*3/uL (4.50-10.00)
[2025-03-19 19:02] LABS: % Iron Saturation 24.93 (15.00-50.00); ALT 25 U/L (10-49); AST 30 U/L (14-35); Albumin 4.4 g/dL (3.8-4.9); Albumin/Globulin Ratio 1.91 Ratio (1.60-3.17); Alkaline Phosphatase 118 U/L (41-126); Blood Urea Nitrogen 20.4 mg/dL (9.0-27.0); Calcium 9.4 mg/dL (8.7-10.3); Carbon Dioxide 22.9 mmol/L (21.6-31.8); Chloride 99 mmol/L (96-109); Chol/HDL Ratio 2.39 Ratio; Globulin 2.3 g/dL (1.6-3.3); Glucose 95 mg/dL (70-110); Iron 88 UG/DL (65-175); LDL Cholesterol,Calculated 32.9 mg/dL (0.0-131.0); Potassium 4.8 mmol/L (3.5-5.5); Sodium 134 mmol/L (135-145); Total Bilirubin 0.3 mg/dL (0.3-1.2); Total Iron Binding Capacity 353 UG/DL (228-460); Total Protein 6.7 g/dL (6.2-8.2)
== END | disposition home or self-care (01) ==
LOC: LABWHC1 13:41
PROVIDERS: ATTEND Internal Medicine
DX: I10 Essential (primary) hypertension (principal); E78.5 Hyperlipidemia, unspecified; D50.9 Iron deficiency anemia, unspecified
CPT/HCPCS: 36415; 80053; 80061; 82728; 83540; 83550; 83735; 84443; 85025